=== PATIENT | male | born 1940 | race African-American/Black ===

== ENCOUNTER 2016-08-01 21:43 | Emergency (ER) | payer BC ==
[~2016-08-01 21:43] MED LIST: ALPHAGAN P0.1 % OPH; ASAB PO; NORV5 PO; ZOVI200CAP PO
== END 2016-08-02 01:40 | disposition home or self-care (01) ==
LOC: ER 21:43
DX: S80.02XA Contusion of left knee, initial encounter (principal); S89.92XA Unspecified injury of left lower leg, initial encounter; W31.9XXA Contact with unspecified machinery, initial encounter; E03.9 Hypothyroidism, unspecified; I10 Essential (primary) hypertension; Z96.653 Presence of artificial knee joint, bilateral
CPT/HCPCS: 73560-LT; 90471; 90714; 99283